=== PATIENT | male | born 1965 | race Caucasian/White ===

== ENCOUNTER 2016-11-02 13:25 | Inpatient (IN) | payer OTHER ==
[~2016-11-02] VITALS: Ht 182.9 cm; Wt 90.7 kg
--- NOTE | 2016-11-02 13:20 | NUR ---
brought by paramedics from [place], on mechanical vent with settings as follows AC 15, TV 500, FIO2 28 % and peep 0, sat at 99%, via tracheostomy, GT in place and clamped at this time, noted to have dsg on sacrum and both heels. Tele SR 80's, pt awake and maintains eye contact when talked to, right arm contracted.
--- NOTE | 2016-11-02 13:20 | NUR ---
PT WAS BROUGHT BY AMBULANCE WITH RT TO HOSPITAL AT THIS TIME. PT WAS TRANSFER FROM TRANSPORT VENT TO HOSPITAL VENT WITH OUT INCIDENT. PT SETTING ARE AC 15, VT 500, FIO2 28%. PT WAS A POSTED 8 SECURED AND INTACT WITH TIE. PT CUFF CHECKED WITH SUGAR BOILER. PT WAS SUCTION AND SCANT AMOUNT OF SECRETIONS OBTAIN. PT VENT ALARMS ON AND AUDIBLE AMBU BAG AND BACK UP TRACH AT BED SIDE. WILL CONTINUE TO MONITOR PT THROUGHOUT SHIFT.
--- NOTE | 2016-11-02 13:30 | NUR ---
DR Sena inserted a coudet # [id number] with yellow urine return, tolerated well
[2016-11-02 14:41] VITALS: BP 116/86
--- NOTE | 2016-11-02 16:38 | NUR ---
seen by Dr Anders
[2016-11-02 16:43] LABS: *BILIRUBIN,URIN NEGATIVE (NEGATIVE); *BLOOD, URINE 2+ (NEGATIVE); *COLOR,URINE YELLOW (YELLOW); *KETONES,URINE NEGATIVE (NEGATIVE); *PROTEIN,URINE TRACE (NEGATIVE); *UROBILINOGEN,URINE 0.2 E.U./dl (NORMAL); LEUKOCYTE ESTERASE ,URINE 2+ (NEGATIVE); NITRITE, URINE POSITIVE (NEGATIVE); PH,URINE 5.5 (5.0-8.0); UGLUCOSE NEGATIVE (NEGATIVE)
[2016-11-02 16:59] LABS: *CLARITY,URINE HAZY (CLEAR); BACTERIA,URINE MA /HPF (NONE SEEN); SQUAMOUS EPITHELIAL CELL,UR FEW /HPF (NONE SEEN); WBC,URINE 80-100 /HPF (0-3)
[2016-11-02] MEDS ORDERED: ASCORBIC ACID 500 MG GT (17:15)
[2016-11-02] MEDS ORDERED: SENN176S GT (17:15)
[2016-11-02] MEDS ORDERED: LACT10SO GT (17:15)
[2016-11-02] MEDS ORDERED: GABA-532 GT (17:15)
[2016-11-02] MEDS ORDERED: METO-295 GT (17:15)
[2016-11-02] MEDS ORDERED: ACET-2154 GT (17:15)
[2016-11-02] MEDS ORDERED: CLON0.1T GT (17:15)
[2016-11-02] MEDS ORDERED: BISA10SU8 RC (17:15)
[2016-11-02] MEDS ORDERED: LORA1TAB GT (17:15)
[2016-11-02] MEDS ORDERED: MVI,10VI2 GT (17:15)
[2016-11-02] MEDS ORDERED: FAMO40TA71 GT (17:15)
[2016-11-02] MEDS ORDERED: FERR325T28 GT (17:15)
[2016-11-02] MEDS ORDERED: NORT25CA GT (17:15)
[2016-11-02] MEDS ORDERED: CYCL10TA9 GT (17:15)
[2016-11-02] MEDS ORDERED: DOCU50LI15 GT (17:15)
[2016-11-02] MEDS ORDERED: HYDR4TAB4 GT (17:15)
[2016-11-02] MEDS ORDERED: IPRA12.9 IH (17:16)
[2016-11-02] MEDS ORDERED: ALBU2.5V13 IH (17:16)
[2016-11-02] MEDS ORDERED: LACT-96 GT (17:16)
[2016-11-02] MEDS ORDERED: ASCO1CAP3 GT (17:16)
[2016-11-02] MEDS ORDERED: [UNRECOGNIZED DRUG - OTHER] GT SCH (19:00)
[2016-11-02] MEDS ORDERED: Medication Not On Formulary EA (Hydromorphone HCl (Dilaudid) 4 MG) GT PRN (19:00)
[2016-11-02] MEDS ORDERED: FIBER GT SCH (19:00)
[2016-11-02] MEDS ORDERED: ACETAMINOPHEN 325 MG TABLET GT PRN (19:00)
[2016-11-02] MEDS ORDERED: CLONIDINE HCL 0.1 MG TABLET GT PRN (19:00)
[2016-11-02] MEDS ORDERED: NORTRIPTYLINE HCL 25 MG CAPSULE GT PRN (19:00)
[2016-11-02] MEDS ORDERED: LACTOSE REDUCED FOOD GT SCH (19:00)
[2016-11-02] MEDS ORDERED: BISACODYL 10 MG SUPP.RECT RC PRN (19:00)
[2016-11-02] MEDS ORDERED: LORAZEPAM 1 MG TABLET GT PRN (19:00)
[2016-11-02] MEDS ORDERED: FIBERSOURCE HN 1000ML LIQUID GT PRN (19:30)
[2016-11-02] MEDS: ALBUTEROL SULFATE 2.5 MG/ 0.5 ML NEBU IH SCH ×2 (19:44→23:39)
--- NOTE | 2016-11-02 19:44 | NUR ---
RECEIVED PT AWAKE AND ALERT ON THEODORE VENT WITH CURRENT SETTINGS OF AC 15, VT 500, FIO2 50%. PT APPEARS TO BE TOLERATING VENT SETTINGS AT THIS TIME. NO S/S OF RESPIRATORY DISTRESS OBSERVED. NO CHANGES MADE ON VENT AT THIS TIME. SUCTION NEEDED. ORAL CARE DONE. HME CHANGED. PORTEX #8 TRACH IS PATENT AND SECURED WITH TRACH TIES. AMBU BAG AND BACK UP TRACH ARE AT BEDSIDE. VENT PLUGGED INTO RED EMERGENCY OUTLET. WILL CONTINUE TO MONITOR THROUGHOUT SHIFT. 2109: NOTICED THAT PT HAS Q4 ALBUTEROL BREATHING TX ORDER. TX SCHEDULED FOR 1929 NOT ADMINISTERED. MEDICATION ORDER WAS NOT RECEIVED IN RESPIRATORY DEPARTMENT. NO ENDORSEMENT OF BREATHING TX WAS RECEIVED. WILL GIVE NEXT BREATHING TX ORDERED.
[2016-11-02 20:00] VITALS: BP 125/85
[2016-11-02] MEDS: LACTULOSE 20 G/30 ML LIQUID UDC GT SCH (21:42)
[2016-11-02] MEDS: ASCORBIC ACID 500 MG TABLET GT SCH (21:42)
[2016-11-02] MEDS: METOCLOPRAMIDE HCL 10 MG TABLET GT SCH (21:42)
[2016-11-02] MEDS: HYDROMORPHONE HCL 2 MG TABLET GT PRN (22:34)
[2016-11-03] VITALS: BP 114/78
--- NOTE | 2016-11-03 00:01 | NUR ---
Alert, mouths words approp. HOB up 30 degrees. Trach to vent; SaO2 monitored.
[2016-11-03] MEDS: ALBUTEROL SULFATE 2.5 MG/ 0.5 ML NEBU IH SCH ×6 (02:59→23:05)
[2016-11-03 04:00] VITALS: BP 115/82
[2016-11-03 06:41] LABS: BASOPHILS % (AUTO) 0.1 % (0.0-2.0); EOSINOPHILS # (AUTO) 0.1 K/uL (0.0-0.7); HEMATOCRIT 29.3 % (40-50); HEMOGLOBIN 9.5 G/DL (14.0-18.0); LYMPHOCYTES # (AUTO) 0.9 K/UL (0.8-4.8); LYMPHOCYTES % (AUTO) 8.2 % (20.5-51.5); MEAN CORPUSCULAR HEMOGLOBIN 28.1 UUG (27.0-31.0); MEAN CORPUSCULAR HGB CONC 32 g/dL (32.0-37.0); MEAN CORPUSCULAR VOLUME 86.6 FL (82.0-92.0); MONOCYTES # (AUTO) 0.5 K/UL (0.1-1.30); MONOCYTES % (AUTO) 4.6 % (0.0-11.0); NEUTROPHILS # (AUTO) 9.5 K/UL (1.8-8.9); NEUTROPHILS % (AUTO) 86.1 % (38.5-71.5); PLATELET COUNT (AUTO) 209 K/UL (150-450); RED BLOOD CELL COUNT(AUTO) 3.38 MIL/UL (4.7-6.1)
[2016-11-03 06:59] LABS: BILIRUBIN,TOTAL 0.3 mg/dL (0.2-1.0); CREATININE 0.7 mg/dL (0.6-1.3); PHOSPHOROUS 2.8 mg/dL (2.5-4.9); POTASSIUM 3.8 mmol/L (3.5-5.1); TOTAL PROTEIN, SERUM 7.3 g/dL (6.4-8.2)
[2016-11-03 07:28] VITALS: BP 137/93
--- NOTE | 2016-11-03 07:44 | NUR ---
PATIENT RECEIVED IN ROOM RESTING WITH EYES CLOSED IN NO ACUTE DISTRESS. SR ON ON SITE SERVICES SPECIALIST. TOLERATING VENT SETTINGS WNL. 02 SAT 98%. GT FEEDING OFF AT THIS TIME. DRESSING TO GT SITE C/D/I. ROLAND CATH DRAINING YELLOW CLEAR URINE. DVT PUMPS AND FIRST STEP MATTRESS IN PLACE.
[2016-11-03] MEDS: LACTULOSE 20 G/30 ML LIQUID UDC GT SCH ×2 (08:01→20:22)
[2016-11-03] MEDS: ACETAMINOPHEN 650 MG/20.3 ML LIQUID UDC GT PRN ×2 (08:02→20:22)
[2016-11-03] MEDS: FERROUS SULFATE 300 MG/5 ML LIQUID UDC GT SCH ×3 (08:03→16:41)
[2016-11-03] MEDS: FAMOTIDINE 20 MG TABLET GT SCH (08:04)
[2016-11-03] MEDS: GABAPENTIN 300 MG CAPSULE GT SCH ×3 (08:04→16:41)
[2016-11-03] MEDS: DOCUSATE SODIUM 100 MG/10 ML LIQUID UDC GT SCH ×2 (08:09→16:41)
[2016-11-03] MEDS: ASCORBIC ACID 500 MG TABLET GT SCH ×2 (08:09→20:23)
[2016-11-03] MEDS: METOCLOPRAMIDE HCL 10 MG TABLET GT SCH ×4 (08:09→20:22)
[2016-11-03] MEDS: MULTIVITS W-FE,OTHER MIN 15 ML UDC GT SCH (08:14)
[2016-11-03] MEDS ORDERED: SENNA LEAF EXTRACT GT SCH (09:00)
[2016-11-03] MEDS ORDERED: Medication Not On Formulary EA (Famotidine 40 MG) GT SCH (09:00)
[2016-11-03] MEDS ORDERED: MULTIVITAMINS 5 ML LIQUID UDC GT SCH (09:00)
[2016-11-03] MEDS ORDERED: MVI-12 10 ML IV SCH (09:00)
[2016-11-03] MEDS ORDERED: Medication Not On Formulary EA (Lactulose (Duphalac) 30 ML) GT SCH (09:00)
[2016-11-03] MEDS ORDERED: FERROUS SULFATE 325 MG TABEC PO SCH (09:00)
[2016-11-03] MEDS ORDERED: ASCORBIC ACID GT SCH (09:00)
[2016-11-03] MEDS ORDERED: GABAPENTIN 100 MG CAPSULE GT SCH (09:00)
[2016-11-03] MEDS: IPRATROPIUM BROMIDE 0.5 MG/2.5 ML NEBU NEB SCH ×4 (11:24→23:05)
[2016-11-03] MEDS ORDERED: IPRATROPIUM BROMIDE 0.5 MG/2.5 ML NEBU NEB SCH (11:30)
[2016-11-03 12:00] VITALS: BP 146/102
[2016-11-03] MEDS: NUTREN 1.5 1000ML BAG GT PRN (12:30)
[2016-11-03 15:59] VITALS: BP 136/94
[2016-11-03] MEDS: HYDROMORPHONE HCL 2 MG TABLET GT PRN (16:41)
[2016-11-03] MEDS ORDERED: CEFTRIAXONE 1 G VIAL IV SCH (20:00)
[2016-11-03 20:17] VITALS: BP 138/98
--- NOTE | 2016-11-03 20:20 | NUR ---
patient awake, alert, responsive,tolerated present vent setting well no respiratory distress,NSR on monitor,temp 100.1 started patient on Rocephin 1gm iv as ordered, Tylenol given via g tube , cooling measure provided.turned and reposition,on 1 st step air mattress ,patient has large amount of soft to loose stool,skin care ,mouth care given.
--- NOTE | 2016-11-03 20:34 | NUR ---
Pt rec'd on Nagel on settings of AC 15, VT 500 and FIO2-28%. Portex 8 is patent and secure. B/U Portex 8 and BVM at bedside. Nagel alarm parameters have been checked and remain audible at this time. Pt to be monitored throughout the shift, PRN SX and adm'd resp neb txs per MD orders.
[2016-11-03] MEDS ORDERED: CEFTRIAXONE 1 G VIAL ONE (20:53)
[2016-11-03] MEDS ORDERED: CEFTRIAXONE 1 G in IV DEXTROSE 5% 50 ML IV SCH (21:00)
[2016-11-04] MEDS: HYDROMORPHONE HCL 2 MG TABLET GT PRN ×3 (00:30→23:31)
[2016-11-04 00:39] VITALS: BP 119/81
--- NOTE | 2016-11-04 00:53 | NUR ---
patient c/o shoulder pain , Dilaudid 4 mg g tube given for pain.
[2016-11-04] MEDS: ALBUTEROL SULFATE 2.5 MG/ 0.5 ML NEBU IH SCH ×6 (03:25→22:58)
[2016-11-04] MEDS: IPRATROPIUM BROMIDE 0.5 MG/2.5 ML NEBU NEB SCH ×6 (03:25→22:58)
[2016-11-04 04:39] VITALS: BP 119/86
--- NOTE | 2016-11-04 05:56 | NUR ---
Patient remains on Viasys Nagel with no changes made to the continuous ventilator settings. No resp. distress noted throughout the shift. Pt was routinely sx'd, administered respiratory neb txs per MD orders and appeared to tolerate respiratory neb txs and continuous mechanical ventilator settings well. Portex 8 remains patent and secure. Backup Portex 8 and resusc. bag are at bedside. Viasys Nagel alarm parameters have been checked and remain audible at this time.
--- NOTE | 2016-11-04 07:12 | NUR ---
PATIENT RECEIVED IN ROOM RESTING ALERT AWAKE IN NO ACUTE DISTRESS. TOLERATING VENT SETTINGS. 02 SAT 97%. HOB ELEVATED. ROLAND CATH WITH URINE YELLOW AND CLEAR. DVT PUMPS AND FIRST STEP MATTRESS IN PLACE.
[2016-11-04 07:31] VITALS: BP 142/98
--- NOTE | 2016-11-04 07:40 | NUR ---
Pt received in semi hammond position, responsive to verbal stimuli, and on continuous mechanical ventilation via trach. Pt is on Nagel vent with ordered settings AC-15, VT-500, FIO2-28%. Pt tolerating vent settings well. SpO2-97%.Trach is a Portex 8. Trach is patent and secure. No redness or irritation around stoma or trach ties. Sxn'd for small amts of white secretions. In-line nebulizer Txs given Q4 as ordered with Albuterol/Atrovent. Txs tolerated well, with no adverse reactions noted. Vent alarm parameters checked, on and audible. Vent plugged into red emergency outlet. Bag/Valve/Mask and back up trach at bedside. No signs or symptoms of respiratory distress noted. Will continue to monitor.
[2016-11-04] MEDS: NUTREN 1.5 1000ML BAG GT PRN ×2 (08:00→23:31)
[2016-11-04] MEDS: GABAPENTIN 300 MG CAPSULE GT SCH ×3 (08:23→16:29)
[2016-11-04] MEDS: FAMOTIDINE 20 MG TABLET GT SCH (08:23)
[2016-11-04] MEDS: ASCORBIC ACID 500 MG TABLET GT SCH ×2 (08:24→20:27)
[2016-11-04] MEDS: LACTULOSE 20 G/30 ML LIQUID UDC GT SCH ×2 (08:24→20:27)
[2016-11-04] MEDS: MULTIVITS W-FE,OTHER MIN 15 ML UDC GT SCH (08:24)
[2016-11-04] MEDS: FERROUS SULFATE 300 MG/5 ML LIQUID UDC GT SCH ×3 (08:24→16:29)
[2016-11-04] MEDS: DOCUSATE SODIUM 100 MG/10 ML LIQUID UDC GT SCH ×2 (08:24→16:33)
[2016-11-04] MEDS: METOCLOPRAMIDE HCL 10 MG TABLET GT SCH ×4 (08:26→20:27)
[2016-11-04 11:48] VITALS: BP 123/87
[2016-11-04] MEDS ORDERED: MEROPENEM 0.5 G in IV NORMAL SALINE 50 ML IV SCH (15:15)
--- NOTE | 2016-11-04 15:21 | NUR ---
PATIENT SEEN BY DR VALENTE. DETAILED REPORT GIVEN.
[2016-11-04 16:01] VITALS: BP 123/81
[2016-11-04] MEDS: ACETAMINOPHEN 650 MG/20.3 ML LIQUID UDC GT PRN ×2 (16:28→23:30)
[2016-11-04] MEDS: MEROPENEM 1 G in IV NORMAL SALINE 100 ML IV SCH ×2 (16:29→23:30)
--- NOTE | 2016-11-04 16:30 | NUR ---
PATIENT WITH TEMP 100.7. COOLING MEASURES INITIATED. TYLENOL GIVEN PRESCRIBED. MERREM GIVEN.
--- NOTE | 2016-11-04 18:04 | NUR ---
END OF SHIFT NOTE: PATIENT IN NO ACUTE DISTRESS THROUGHOUT SHIFT. DENIED PAIN. SR ON BRINE TANK OPERATOR. TOLERATING GT FEEDINGS WELL. NO RESIDUAL NOTED. HOB ELEVATED. HAD ONE LG BM. ROLAND CATH IN PLACE WITH URINE YELLOW IN COLOR. WOUND TX DONE ORDERED. TURNED AND REPOSITIONED EVERY 3 HOURS AND PRN. HEELS FLOATED ON PILLOWS. DVT PUMPS AND FIRST STEP MATTRESS IN PLACE. SAFETY MAINTAINED.
--- NOTE | 2016-11-04 18:58 | NUR ---
TEMP 100.9. DR. ARCHER NOTIFIED. NO NEW ORDERS AT THIS TIME. CONTINUES WITH COOLING MEASURES. WILL ENDORSE TO NEXT SHIFT RN.
--- NOTE | 2016-11-04 19:05 | NUR ---
RECEIVED PT ON CONTINUOUS VENT AC 15 VT 500 FIO2 28% . TRACH IN PLACE AND SECURED. BACK UP TRACH AND AMBU BAG AT BEDSIDE. IN LINE TX GIVEN ORDERED. SUCTION SMALL AMOUNT THIN PALE YELLOW SECRETIONS. VENT CHECKED, ALARMS WORKING WELL AND AUDIBLE. NO DISTRESS NOTED AT THIS TIME. WILL CONTINUE TO MONITOR.
--- NOTE | 2016-11-04 20:00 | NUR ---
PATIENT AWAKE,O2 SAT 99%,NSR ON MONITOR, TOLERATED TUBE FEEDING WELL,NO RESIDUAL,HELD LACTULOSE DUE TO CONTINUE HAVING LARGE AMOUNT OF DIARRHEA,TEMP 100.2 CONTINUE WITH COOLING MEASURE.MOUTH CARE, SKIN CARE ,TURN AND REPOSITION Q 2H, HOB ELEVATED.
[2016-11-04 20:19] VITALS: BP 119/81
--- NOTE | 2016-11-05 00:05 | NUR ---
PATIENT SLEEP INTERMITTENTLY, NO ACUTE DISTRESS,TEMP 98.3 DRESSING CHANGE TO SACRAL WOUND, WOUND CLEAN, SMALL SEROUS DRAINAGE NOTED, ESBL URINE CONTACT ISOLATION PRECAUTIONS.
[2016-11-05 00:11] VITALS: BP 92/61
[2016-11-05] MEDS: IPRATROPIUM BROMIDE 0.5 MG/2.5 ML NEBU NEB SCH ×6 (02:28→23:14)
[2016-11-05] MEDS: ALBUTEROL SULFATE 2.5 MG/ 0.5 ML NEBU IH SCH ×6 (02:28→23:14)
[2016-11-05 04:48] VITALS: BP 115/78
--- NOTE | 2016-11-05 06:46 | NUR ---
PATIENT REMAINS AFEBRILE, TOLERATED SAME VENT SETTING,TURN AND REPOSITION,STOP TUBE FEEDING AT 0600, TO RESTART AT 0800.
[2016-11-05 06:47] LABS: BASOPHILS % (AUTO) 0.2 % (0.0-2.0); EOSINOPHILS # (AUTO) 0.1 K/uL (0.0-0.7); EOSINOPHILS % (AUTO) 1.8 % (0.0-7.0); HEMATOCRIT 28.7 % (40-50); HEMOGLOBIN 9.6 G/DL (14.0-18.0); LYMPHOCYTES % (AUTO) 24.3 % (20.5-51.5); MEAN CORPUSCULAR HEMOGLOBIN 28.8 UUG (27.0-31.0); MEAN CORPUSCULAR HGB CONC 33 g/dL (32.0-37.0); MEAN CORPUSCULAR VOLUME 86.7 FL (82.0-92.0); MONOCYTES # (AUTO) 1.1 K/UL (0.1-1.30); MONOCYTES % (AUTO) 12.8 % (0.0-11.0); NEUTROPHILS # (AUTO) 5.1 K/UL (1.8-8.9); NEUTROPHILS % (AUTO) 60.9 % (38.5-71.5); PLATELET COUNT (AUTO) 191 K/UL (150-450); RED BLOOD CELL COUNT(AUTO) 3.31 MIL/UL (4.7-6.1); WHITE BLOOD COUNT (AUTO) 8.3 K/UL (4.0-11.2)
--- NOTE | 2016-11-05 07:19 | NUR ---
PT RECEIVED AWAKE ALERT RESPONSIVE ON CMV WITH TRACH SECURED AND INTACT. AIRWAY PATENT. PT TOLERATING CURRENT VENT SETTINGS FINE WITH NO DISTRESS. VENT ALARMS SET AND AUDIBLE.
[2016-11-05 07:20] LABS: BILIRUBIN,TOTAL 0.2 mg/dL (0.2-1.0); CREATININE 0.7 mg/dL (0.6-1.3); MAGNESIUM 2.1 mg/dL (1.8-2.4); PHOSPHOROUS 3.5 mg/dL (2.5-4.9); POTASSIUM 4.1 mmol/L (3.5-5.1); THYROID STIMULATING HORMONE 1.708 mIU/mL (0.358-3.740); TOTAL PROTEIN, SERUM 7.2 g/dL (6.4-8.2)
[2016-11-05 07:27] VITALS: BP 146/98
--- NOTE | 2016-11-05 07:30 | NUR ---
AWAKE ALERT AND RESPONSIVE, NO SIGNS OF DISTRESS OR C/O PAIN. VENT SETTINGS ORDERED SATURATING 100%
[2016-11-05] MEDS: FAMOTIDINE 20 MG TABLET GT SCH (08:28)
[2016-11-05] MEDS: GABAPENTIN 300 MG CAPSULE GT SCH ×3 (08:28→16:02)
[2016-11-05] MEDS: FERROUS SULFATE 300 MG/5 ML LIQUID UDC GT SCH ×3 (08:28→16:02)
[2016-11-05] MEDS: METOCLOPRAMIDE HCL 10 MG TABLET GT SCH ×4 (08:28→20:24)
[2016-11-05] MEDS: LACTULOSE 20 G/30 ML LIQUID UDC GT SCH ×2 (08:28→20:24)
[2016-11-05] MEDS: DOCUSATE SODIUM 100 MG/10 ML LIQUID UDC GT SCH ×2 (08:28→16:02)
[2016-11-05] MEDS: MULTIVITS W-FE,OTHER MIN 15 ML UDC GT SCH (08:28)
[2016-11-05] MEDS: MEROPENEM 1 G in IV NORMAL SALINE 100 ML IV SCH ×2 (08:28→16:09)
[2016-11-05] MEDS: ASCORBIC ACID 500 MG TABLET GT SCH ×2 (08:28→20:24)
[2016-11-05] MEDS: CYCLOBENZAPRINE HCL 10 MG TABLET GT PRN (08:30)
--- NOTE | 2016-11-05 08:30 | NUR ---
GT TUBING BURSTED DURING FLUSHING DR SILVER NOTIFIED SAID TO CALL DR MCMANUS
--- NOTE | 2016-11-05 09:00 | NUR ---
DR MCMANUS NOTIFIED WITH ORDER TO OBTAIN CONSENT FOR GT REPLACEMENT IN AM.
--- NOTE | 2016-11-05 09:30 | NUR ---
TRIED TO REACH DPOA SHOWN ON RECORD BUT TO NO AVAIL.
[2016-11-05 09:44] LABS: ABG BASE EXCESS 3.4 mmol/L; ABG HCO3 27.5 mmol/L; ABG PCO2 39.4 mmHg (35.0-45.0); ABG PH 7.461 (7.350-7.450); ABG SITE RIGHT RADIAL; ABG TOTAL HEMOGLOBIN 9.9 G/dL (13.5-18.0); MetHb 0.3 % (0.0-1.5); O2Hb 97.1 % (94.0-97.0); VENT MODE VENT - A/C; VT, ABG 500 mL
--- NOTE | 2016-11-05 10:45 | NUR ---
SEEN BY DR VALENTE NO NEW ORDERS, RESPIRATORY STATUS NO CHANGE
[2016-11-05 11:02] VITALS: BP 147/65
[2016-11-05] MEDS: IV D5 1/2 NS 1000 ML 1,000 ML IV PRN (12:56)
--- NOTE | 2016-11-05 12:57 | NUR ---
ALL GT MEDS NOT GIVEN AWAITING GT REPLACEMENT
--- NOTE | 2016-11-05 14:53 | NUR ---
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 PT ON FIRST STEP [facility]. SURGICAL CONSULT WAS CALLED BY DR KOTHARI TO DR ULKE DYER. ALL SKIN PROTECTION AND WOUND RECOMMENDATIONS DISCUSSED WITH NURSING STAFF. IN AGREEMENT WITH PLAN OF CARE. Addendum: 11/05/16 at 1454 by DEB CARMICHAEL RN Amended: Links added. Addendum: 11/05/16 at 1458 by DEB CARMICHAEL RN SCARRING NOTED TO LEFT ANKLE AND HEEL. DISCOLORED AREAS NOTED TO LATERAL FEET.
[2016-11-05] MEDS ORDERED: Z GUARD REMEDY PASTE 57 GM TUBE TOP PRN (15:00)
[2016-11-05 15:07] VITALS: BP 142/88
[2016-11-05] MEDS: NYSTATIN SUSPENSION 5 ML LIQUID UDC PO SCH (18:16)
--- NOTE | 2016-11-05 18:50 | NUR ---
DR MCMANUS IN REPLACED GT AT BEDSIDE PATIENT TOLERATED WELL. SAID OK TO START FEEDING ORDERED VIA GT
--- NOTE | 2016-11-05 19:10 | NUR ---
Bedside reporting with MEHREEN Cash. Received patient awake, non verbal due to trach inplaced, alert and able to make needs known thru facial and body language. On mechanical vent tolerating prescribed setting well. GT intact, patent, tolerating feeding. No s/s of aspiration noted. No gastric residual obtained. F/C intact and patent draining clear yellow output per gravity. On 1st step mattress for skin management. Continue care as planned.
[2016-11-05] MEDS: NUTREN 1.5 1000ML BAG GT PRN (19:18)
--- NOTE | 2016-11-05 19:24 | NUR ---
Received pt on Nagel vent with the following settings of AC-15, Vt-500, FIO2-28%, trached with Portex#8 cuffed trach, which is in the place and secure. Pt tachypneic and asking for pain medication. RN Christofer notified. Airway care done, pt responded to physical stimuli. In-line HHN tx with 2.5mg Albuterol+0.5mg Atrovent given, pt tolerated well. Cont. pulse ox on. Resus. bag and back up trach at bedside. Vent and alarms checked and reset.
[2016-11-05 20:11] VITALS: BP 152/106
[2016-11-05] MEDS: ACETAMINOPHEN 650 MG/20.3 ML LIQUID UDC GT PRN (20:18)
[2016-11-05] MEDS: HYDROMORPHONE HCL 2 MG TABLET GT PRN (20:19)
--- NOTE | 2016-11-05 20:20 | NUR ---
Tylenol and Dilaudid was given via GT for Temp 101.1 and complaint of generalized pain. Will monitor.
[2016-11-05] MEDS: Z GUARD REMEDY PASTE 57 GM TUBE TOP SCH (20:24)
--- NOTE | 2016-11-06 | NUR ---
Temp down to 99. Continue cooling measure. Will monitor.
[2016-11-06 00:18] VITALS: BP 111/79
[2016-11-06] MEDS: MEROPENEM 1 G in IV NORMAL SALINE 100 ML IV SCH ×4 (00:35→23:26)
[2016-11-06] MEDS: NYSTATIN SUSPENSION 5 ML LIQUID UDC PO SCH ×4 (00:35→17:46)
[2016-11-06] MEDS: ALBUTEROL SULFATE 2.5 MG/ 0.5 ML NEBU IH SCH ×6 (02:58→23:41)
[2016-11-06] MEDS: IPRATROPIUM BROMIDE 0.5 MG/2.5 ML NEBU NEB SCH ×6 (02:59→23:41)
[2016-11-06 04:00] VITALS: BP 119/88
[2016-11-06] MEDS: IV D5 1/2 NS 1000 ML 1,000 ML IV PRN ×2 (04:00→22:09)
--- NOTE | 2016-11-06 05:16 | NUR ---
Cont. monitor pt on prescribed vent settings. During the shift pt still tachypneic, RN provided pain medication. Prescribed vent settings pt tolerated well, no changes made. Sx and lavage PRN. In-line HHN tx's given as ordered. Cont. pulse ox on. Resus. bag and back up trach at bedside. Vent and alarms on and audible.
--- NOTE | 2016-11-06 06:48 | NUR ---
Afebrile.Tolerating vent, GT feeding well. All needs attended and met. No significant event reported all night. Continue care as planned.
--- NOTE | 2016-11-06 07:30 | NUR ---
NO SIGNS OF PAIN OR DISTRESS WITH CURRENT VENT SETTINGS SATURATING 100%, DENIES PAIN. TOLERATING TF AT 75ML/HR. AFEBRILE WILL CONTINUE WITH JESSI STATUS AND CURRENT TX PLAN
[2016-11-06 08:07] LABS: BASOPHILS % (AUTO) 0.1 % (0.0-2.0); EOSINOPHILS # (AUTO) 0.1 K/uL (0.0-0.7); EOSINOPHILS % (AUTO) 1.1 % (0.0-7.0); HEMOGLOBIN 9.9 G/DL (14.0-18.0); LYMPHOCYTES # (AUTO) 1.5 K/UL (0.8-4.8); LYMPHOCYTES % (AUTO) 19.4 % (20.5-51.5); MEAN CORPUSCULAR HEMOGLOBIN 28.3 UUG (27.0-31.0); MEAN CORPUSCULAR HGB CONC 33 g/dL (32.0-37.0); MEAN CORPUSCULAR VOLUME 85.5 FL (82.0-92.0); MONOCYTES # (AUTO) 0.7 K/UL (0.1-1.30); MONOCYTES % (AUTO) 9.5 % (0.0-11.0); NEUTROPHILS # (AUTO) 5.3 K/UL (1.8-8.9); NEUTROPHILS % (AUTO) 69.9 % (38.5-71.5); PLATELET COUNT (AUTO) 198 K/UL (150-450); RED BLOOD CELL COUNT(AUTO) 3.51 MIL/UL (4.7-6.1); WHITE BLOOD COUNT (AUTO) 7.6 K/UL (4.0-11.2)
[2016-11-06 08:18] LABS: BILIRUBIN,TOTAL 0.3 mg/dL (0.2-1.0); CREATININE 0.7 mg/dL (0.6-1.3); PHOSPHOROUS 3.3 mg/dL (2.5-4.9); POTASSIUM 3.6 mmol/L (3.5-5.1); TOTAL PROTEIN, SERUM 7.1 g/dL (6.4-8.2)
[2016-11-06] MEDS: ASCORBIC ACID 500 MG TABLET GT SCH ×2 (08:48→20:18)
[2016-11-06] MEDS: METOCLOPRAMIDE HCL 10 MG TABLET GT SCH ×4 (08:48→20:18)
[2016-11-06] MEDS: FAMOTIDINE 20 MG TABLET GT SCH (08:48)
[2016-11-06] MEDS: FERROUS SULFATE 300 MG/5 ML LIQUID UDC GT SCH ×3 (08:48→17:46)
[2016-11-06] MEDS: GABAPENTIN 300 MG CAPSULE GT SCH ×3 (08:48→17:46)
[2016-11-06] MEDS: LACTULOSE 20 G/30 ML LIQUID UDC GT SCH ×2 (08:49→20:18)
[2016-11-06] MEDS: DOCUSATE SODIUM 100 MG/10 ML LIQUID UDC GT SCH ×2 (08:49→17:00)
[2016-11-06] MEDS: MULTIVITS W-FE,OTHER MIN 15 ML UDC GT SCH (08:49)
[2016-11-06] MEDS: Z GUARD REMEDY PASTE 57 GM TUBE TOP SCH ×2 (08:49→20:23)
[2016-11-06 09:50] VITALS: BP 119/85
--- NOTE | 2016-11-06 10:56 | NUR ---
SEEN BY DR VALENTE WITH ORDERS, SEE NOTES
[2016-11-06 11:12] VITALS: BP 105/72
[2016-11-06] MEDS: NUTREN 1.5 1000ML BAG GT PRN (12:06)
[2016-11-06 15:14] VITALS: BP 139/85
--- NOTE | 2016-11-06 17:00 | NUR ---
SEEN BY DR DYER FOR WOUND CARE, SEE NOTES. WOUND CULTURE RIGHT HEEL SENT TO LAB
--- NOTE | 2016-11-06 18:00 | NUR ---
REPORT GIVEN TO PHYSICIAN NEONATOLOGY CONTINUE WITH JESSI STATUS. AFEBRILE
--- NOTE | 2016-11-06 18:11 | NUR ---
RESUMED CARE POST REPORT, VENT IS A STABLE VENT DEPENDENT ON CURRENT VENTILATOR SETTINGS. O2 SATURATION IS AT 99-100% ALL DAY. IN LINE MEDICATION GIVEN WITHOUT COMPLICATION. SUCTIONED NEEDED WITHOUT COMPLICATION. MOVED TO CCU FOR TONIGHT. NO CHANGES.
--- NOTE | 2016-11-06 18:55 | NUR ---
Report received from janee Bach patient in the unit at 1745. and rn with patient until 184.
--- NOTE | 2016-11-06 19:10 | NUR ---
Received report from MEHREEN Romero. VS stable, HR 90's SR.
--- NOTE | 2016-11-06 19:12 | NUR ---
Patient under my visual care for 15 minutes and report given to incoming janee hanson as it was received from janee Bach
--- NOTE | 2016-11-06 19:43 | NUR ---
PT RECEIVED ON THEODORE VENT WITH CURRENT SETTINGS OF AC 15, VT 500, FIO2 40%. NO CHANGES MADE AT THE MOMENT. PT IS AWAKE AND ALERT AT THIS TIME. APPEARS TO BE TOLERATING VENT SETTINGS WITH NO ISSUES. PT SHOWING NO S/S OF RESPIRATORY DISTRESS AT THIS TIME. TRACH IS PATENT AND SECURED WITH TRACH TIES. VENT CHECK DONE. ALARMS ARE ON AND AUDIBLE. ADMINISTERED Q4 BREATHING TX ORDERED. NO ADVERSE REACTIONS OBSERVED. ORAL CARE DONE. HME CHANGED. SUCTIONED MODERATE AMOUNT OF THICK, PALE SECRETIONS. BVM AND BACK UP TRACH ARE AT BEDSIDE. VENT IS PLUGGED INTO RED EMERGENCY OUTLET. WILL CONTINUE TO MONITOR THROUGHOUT SHIFT.
[2016-11-06 20:00] VITALS: BP 134/100
--- NOTE | 2016-11-06 20:10 | NUR ---
Seen patient awake, assessment done.Turned and repositioned him with maximum assistance w/ 2 RN's. RT G-tube feeding running at 75mls/hr w/ zero residuals. With 1BM loose and brown in color. VS stable. Afebrile.
[2016-11-06] MEDS: HYDROMORPHONE HCL 2 MG TABLET GT PRN (20:21)
[2016-11-06 23:53] LABS: *BILIRUBIN,URIN NEGATIVE (NEGATIVE); *BLOOD, URINE NEGATIVE (NEGATIVE); *CLARITY,URINE CLEAR (CLEAR); *COLOR,URINE YELLOW (YELLOW); *KETONES,URINE NEGATIVE (NEGATIVE); *PROTEIN,URINE NEGATIVE (NEGATIVE); *UROBILINOGEN,URINE 0.2 E.U./dl (NORMAL); LEUKOCYTE ESTERASE ,URINE NEGATIVE (NEGATIVE); NITRITE, URINE NEGATIVE (NEGATIVE); PH,URINE 5.5 (5.0-8.0); UGLUCOSE NEGATIVE (NEGATIVE)
[2016-11-06 23:58] LABS: BACTERIA,URINE FEW /HPF (NONE SEEN); RBC,URINE 0-3 /HPF (0-3); SQUAMOUS EPITHELIAL CELL,UR FEW /HPF (NONE SEEN); WBC,URINE 0-3 /HPF (0-3)
[2016-11-07] VITALS: BP 113/83
--- NOTE | 2016-11-07 | NUR ---
Continue skin care. Bed bath rendered. Pictures taken. Pt is asleep but easily awakened. VS stable. denies any pain.
[2016-11-07] MEDS: IPRATROPIUM BROMIDE 0.5 MG/2.5 ML NEBU NEB SCH ×6 (02:30→23:11)
[2016-11-07] MEDS: ALBUTEROL SULFATE 2.5 MG/ 0.5 ML NEBU IH SCH ×6 (02:30→23:11)
[2016-11-07 04:00] VITALS: BP 112/77
--- NOTE | 2016-11-07 04:00 | NUR ---
PT had another loose BM to pasty brown color stool, inserted flexi seal, to also protect sacral wound. Continue skin care protocol: turned and repositioned.
[2016-11-07] MEDS: NYSTATIN SUSPENSION 5 ML LIQUID UDC PO SCH ×5 (06:08→23:43)
[2016-11-07] MEDS: HYDROMORPHONE HCL 2 MG TABLET GT PRN ×3 (06:08→20:32)
[2016-11-07 06:21] LABS: BASOPHILS % (AUTO) 0.2 % (0.0-2.0); EOSINOPHILS # (AUTO) 0.3 K/uL (0.0-0.7); EOSINOPHILS % (AUTO) 2.8 % (0.0-7.0); HEMATOCRIT 32.2 % (40-50); HEMOGLOBIN 10.5 G/DL (14.0-18.0); LYMPHOCYTES # (AUTO) 2.1 K/UL (0.8-4.8); LYMPHOCYTES % (AUTO) 18.9 % (20.5-51.5); MEAN CORPUSCULAR HEMOGLOBIN 27.8 UUG (27.0-31.0); MEAN CORPUSCULAR HGB CONC 33 g/dL (32.0-37.0); MEAN CORPUSCULAR VOLUME 85.2 FL (82.0-92.0); MONOCYTES # (AUTO) 0.7 K/UL (0.1-1.30); MONOCYTES % (AUTO) 6.4 % (0.0-11.0); NEUTROPHILS % (AUTO) 71.7 % (38.5-71.5); PLATELET COUNT (AUTO) 240 K/UL (150-450); RED BLOOD CELL COUNT(AUTO) 3.78 MIL/UL (4.7-6.1); WHITE BLOOD COUNT (AUTO) 11.1 K/UL (4.0-11.2)
[2016-11-07 06:26] LABS: CARBON DIOXIDE 26 mmol/L (21-32); CHLORIDE 106 mmol/L (98-107); CREATININE 0.6 mg/dL (0.6-1.3); GLUCOSE 120 mg/dL (74-106); PHOSPHOROUS 3.2 mg/dL (2.5-4.9); POTASSIUM 3.4 mmol/L (3.5-5.1); UREA NITROGEN, BLOOD 10 mg/dL (7-18)
--- NOTE | 2016-11-07 07:00 | NUR ---
Called and spoke to LEATHA Patton regarding low HH 7.6/22.7 and WBC of 20.6. Ordered 1 unit of PRBC and type and screen. Addendum: 11/07/16 at 0714 by GIOVANY GIL RN Wrong patient
--- NOTE | 2016-11-07 07:30 | NUR ---
RECIEVED REPORT FROM THE INVESTIGATION DIVISION LIEUTENANT RN. PT IS LYING IN BED, ALERT AND ORIENTED TO HIS NAME. PT IS QUADREPLEGIC, VSS. NO APPARENT DISTRESS NOTED. HR IS SR. TRACHEOSTOTOMY TUBE INTACT PORTEX 8, CONNECTED TO A VENT WITH A SETTING OF AC-15, TV-500, FIO2-28%. O2SAT 98%. NO APPARENT RESPIRATORY DISTRESS.
--- NOTE | 2016-11-07 07:30 | NUR ---
Report to MEHREEN olson. Given Dilaudid given for neck and shoulder pain, HR was 90's, facial grimace noted, especial during turning.
[2016-11-07 08:00] VITALS: BP 124/90
--- NOTE | 2016-11-07 08:02 | NUR ---
PT REC'D ON THEODORE VENT SETTINGS AC15 500VT PEEP+0, 28%FIO2. NO VENT CHANGES MADE AT THIS TIME NO WEANING ORDERED. PT TOLERATING CURRENT VENT MODALITY WELL. NO S/S OF DISTRESS NOTED OF THIS TIME. VENT ALARMS AUDIBLE CHECKED AND RESET. Q4 INHALATION THERAPY TO BE GIVEN ORDERED BY MD. SUCTIONED SM AMOUNT OF THICK, YELLOWISH SECRETIONS. HME CHANGED. AMBU BAG AND BACK UP TRACH AT BEDSIDE. WILL CONTINUE TO MONITOR AND REPORT ANY CHANGES.
--- NOTE | 2016-11-07 08:30 | NUR ---
TRANSFERRED THE PT TO JESSI VIA BED TO RM 210. AFEBRILE AND CONDITION IS UNCHANGED.
[2016-11-07] MEDS: LACTULOSE 20 G/30 ML LIQUID UDC GT SCH ×2 (08:44→20:31)
[2016-11-07] MEDS: METOCLOPRAMIDE HCL 10 MG TABLET GT SCH ×4 (08:44→20:31)
[2016-11-07] MEDS: MULTIVITS W-FE,OTHER MIN 15 ML UDC GT SCH (08:44)
[2016-11-07] MEDS: FAMOTIDINE 20 MG TABLET GT SCH (08:44)
[2016-11-07] MEDS: FERROUS SULFATE 300 MG/5 ML LIQUID UDC GT SCH ×3 (08:44→17:06)
[2016-11-07] MEDS: DOCUSATE SODIUM 100 MG/10 ML LIQUID UDC GT SCH ×3 (08:44→17:00)
[2016-11-07] MEDS: ASCORBIC ACID 500 MG TABLET GT SCH ×2 (08:45→20:31)
[2016-11-07] MEDS: Z GUARD REMEDY PASTE 57 GM TUBE TOP SCH ×2 (08:45→20:31)
[2016-11-07] MEDS ORDERED: POTASSIUM CHLORIDE 20 MEQ POWDER PACKET GT ONE (08:45)
[2016-11-07] MEDS: GABAPENTIN 300 MG CAPSULE GT SCH ×3 (08:46→17:04)
[2016-11-07] MEDS: MEROPENEM 1 G in IV NORMAL SALINE 100 ML IV SCH ×3 (08:57→23:43)
--- NOTE | 2016-11-07 09:00 | NUR ---
NO ACUTE DISTRESS, CONTINUE CURRENT TX PLAN A JESSI STATUS
--- NOTE | 2016-11-07 09:45 | NUR ---
REPORT GIVEN TO HEIDE VERDE.
[2016-11-07] MEDS: CYCLOBENZAPRINE HCL 10 MG TABLET GT PRN (10:24)
[2016-11-07] MEDS: NUTREN 1.5 1000ML BAG GT PRN (10:44)
[2016-11-07] MEDS: IV D5 1/2 NS 1000 ML 1,000 ML IV PRN (10:58)
--- NOTE | 2016-11-07 11:00 | NUR ---
SEEN BY DR VALENTE AND DR SONI SEE NOTES
[2016-11-07 11:53] VITALS: BP 144/112
[2016-11-07] MEDS ORDERED: SIMETHICONE 40 MG/0.6 ML 30 ML BOTTLE PO PRN (12:15)
--- NOTE | 2016-11-07 16:00 | NUR ---
WOUND CARE DONE NOTED WOUND WITH SEROUS DRAINAGE, CLEAN AND GRANULATING BOTH SACRUM AND RIGHT HEEL.
[2016-11-07 16:11] VITALS: BP 131/93
--- NOTE | 2016-11-07 18:21 | NUR ---
CONTINUE WITH JESSI MONITORING AND PAIN MANAGEMENT, IV ANTIBIOTICS NO ALLERGY REACTION. REMAINS SR ON MONITOR
--- NOTE | 2016-11-07 19:00 | NUR ---
Bedside reporting with Shreya. Patient sleeping during initial rounds. Not in distress. Tolerating vent setting as prescribed. HOB elevated. GT feeding continuos via Enteral pump. No gastric residual obtained at this time. No s/s of aspiration noted. Flexi-seal intact with small amount of santillan colored output, irrigated with 60 cc of water as needed. Sacral dressing of Mepelex with some pinkish colored stain, changed as needed. Turned and repositioned for comfort. Continue care as planned.
[2016-11-07 20:00] VITALS: BP 131/81
--- NOTE | 2016-11-07 20:35 | NUR ---
Presenting grimacing, through mouthing words complaining of sacral wound pain, medicated with Dilaudis 4 mg as ordered and needed. Will monitor.
--- NOTE | 2016-11-07 21:30 | NUR ---
Sleeping at this time. No s/s of pain/discomforts.
[2016-11-08] VITALS: BP 132/86
[2016-11-08] MEDS: IV D5 1/2 NS 1000 ML 1,000 ML IV PRN ×2 (02:46→18:03)
[2016-11-08] MEDS: NUTREN 1.5 1000ML BAG GT PRN ×2 (02:46→18:04)
[2016-11-08] MEDS: ALBUTEROL SULFATE 2.5 MG/ 0.5 ML NEBU IH SCH ×6 (02:52→23:30)
[2016-11-08] MEDS: IPRATROPIUM BROMIDE 0.5 MG/2.5 ML NEBU NEB SCH ×6 (02:52→23:30)
[2016-11-08 04:00] VITALS: BP 137/90
[2016-11-08] MEDS: NYSTATIN SUSPENSION 5 ML LIQUID UDC PO SCH ×3 (06:09→17:35)
--- NOTE | 2016-11-08 06:36 | NUR ---
Slept well. Remain afebrile. No further complaint presented . had [address] 140's non sustained. All needs attended and met. Tolerating vent setting, GT feeding well. No significant event reported. Continue care as planned.
[2016-11-08 06:42] LABS: BASOPHILS % (AUTO) 0.3 % (0.0-2.0); EOSINOPHILS # (AUTO) 0.4 K/uL (0.0-0.7); EOSINOPHILS % (AUTO) 3.4 % (0.0-7.0); HEMATOCRIT 31.5 % (40-50); HEMOGLOBIN 10.4 G/DL (14.0-18.0); LYMPHOCYTES # (AUTO) 2.2 K/UL (0.8-4.8); LYMPHOCYTES % (AUTO) 19.8 % (20.5-51.5); MEAN CORPUSCULAR HEMOGLOBIN 28.8 UUG (27.0-31.0); MEAN CORPUSCULAR HGB CONC 33 g/dL (32.0-37.0); MEAN CORPUSCULAR VOLUME 87.3 FL (82.0-92.0); MONOCYTES # (AUTO) 0.7 K/UL (0.1-1.30); NEUTROPHILS # (AUTO) 7.9 K/UL (1.8-8.9); NEUTROPHILS % (AUTO) 70.5 % (38.5-71.5); PLATELET COUNT (AUTO) 285 K/UL (150-450); RED BLOOD CELL COUNT(AUTO) 3.61 MIL/UL (4.7-6.1); WHITE BLOOD COUNT (AUTO) 11.2 K/UL (4.0-11.2)
[2016-11-08 06:52] LABS: CREATININE 0.7 mg/dL (0.6-1.3); MAGNESIUM 2.2 mg/dL (1.8-2.4); PHOSPHOROUS 2.4 mg/dL (2.5-4.9); POTASSIUM 4.6 mmol/L (3.5-5.1)
--- NOTE | 2016-11-08 07:22 | NUR ---
Bedside report given to MEHREEN Mak
--- NOTE | 2016-11-08 07:30 | NUR ---
awake, able to follow commands, on vent via tracheostomy with same settings, sat at 100%, repositioned for comfort with head of bed elevated, on isolation for esbl in urine, GT in tact and patent, clamped a this time, flexiseal with liquid green stool in the bag, martinez catheter draining clear yellow urine, on first step mattress
[2016-11-08 07:47] VITALS: BP 150/111
--- NOTE | 2016-11-08 08:00 | NUR ---
tube fdg of Nutren 1.5 started at 75 ml/hr- no residual noted, aspiration precaution observed.
[2016-11-08] MEDS: FERROUS SULFATE 300 MG/5 ML LIQUID UDC GT SCH ×3 (08:39→16:46)
[2016-11-08] MEDS: MULTIVITS W-FE,OTHER MIN 15 ML UDC GT SCH (08:39)
[2016-11-08] MEDS: METOCLOPRAMIDE HCL 10 MG TABLET GT SCH ×4 (08:39→21:45)
[2016-11-08] MEDS: LACTULOSE 20 G/30 ML LIQUID UDC GT SCH ×2 (08:39→21:45)
[2016-11-08] MEDS: GABAPENTIN 300 MG CAPSULE GT SCH ×3 (08:39→16:45)
[2016-11-08] MEDS: MEROPENEM 1 G in IV NORMAL SALINE 100 ML IV SCH ×2 (08:39→16:07)
[2016-11-08] MEDS: ASCORBIC ACID 500 MG TABLET GT SCH ×2 (08:39→21:45)
[2016-11-08] MEDS: FAMOTIDINE 20 MG TABLET GT SCH (08:40)
[2016-11-08] MEDS: Z GUARD REMEDY PASTE 57 GM TUBE TOP SCH ×2 (08:41→21:45)
[2016-11-08] MEDS: DOCUSATE SODIUM 100 MG/10 ML LIQUID UDC GT SCH ×2 (08:49→16:45)
--- NOTE | 2016-11-08 11:43 | NUR ---
PT RECEIVED ON THEODORE VENT , SETTINGS ARE AC 15, Vt 500, 28% FIO2. TOLERATING VENT SETTINGS WELL WITH NO SOB NOTED. PORTEX 8 TRACH IS PATENT AND SECURED WITH TIES, CUFF INFLATED. SUCTIONED LARGE AMOUNTS OF THICK YELLOW THICK SECRETIONS. HHN TXS GIVEN WITH NO ADVERSE REACTIONS. ALARMS ARE ON AND AUDIBLE, BVM AND BACK UP TRACH AT BEDSIDE. WILL CONTINUE TO MONITOR.
[2016-11-08 11:46] VITALS: BP 143/102
--- NOTE | 2016-11-08 12:00 | NUR ---
awake and able to nod, maintains eye contact, tube fdg infusing well, no residual noted, kept head of bed elevated at all times
[2016-11-08 15:52] VITALS: BP 154/94
--- NOTE | 2016-11-08 16:00 | NUR ---
stools pasty around tube, none noted in the flexiseal bag- removed flexiseal and cleansed pt, wound care done, repositioned with heels off loaded with pillows, tolerating tuube fdg well, no residual noted, contact isolation observed
[2016-11-08] MEDS ORDERED: NEUTRA PHOS PACKET GT ONE (16:30)
[2016-11-08] MEDS: ACETAMINOPHEN 650 MG/20.3 ML LIQUID UDC GT PRN (17:42)
--- NOTE | 2016-11-08 18:00 | NUR ---
medicated with Tylenol via GT for c/o pain. repositioned q 2h with heels off loaded at all times, GT feeding tolerated well, all needs attended and met, had 2 pasty BMs this shift, kept clean and dry, no distress noted, sat at 99% with same vent settings, suctioned of small amount of thin whitish secretions via tracheostomy, oral care given
--- NOTE | 2016-11-08 19:20 | NUR ---
Bedside reporting with MEHREEN Marks. Patient sleeping during initial rounds, with HOB elevated, trach connected to a mechanical vent with prescribed setting, tolerated well. No s/s of respiratory distress noted. Dr. Alvarado at bedside. GT intact and patent with continuos Nutren 1.5 feeding via Enteral pump. No gastric residual obtained. GT site clean and dry, no s/s of infection. F/C intact and patent draining per gravity at bedside with cloudy yellow urine output. Sacral dressing intact. Contact isolation maintained. Continue current plan of care.
[2016-11-08 20:03] VITALS: BP 122/83
--- NOTE | 2016-11-08 20:35 | NUR ---
PT ON CONT THEODORE VENT WITH PORTEX # [address] AND SECURED, WITH SAME CURRENT VENT SETTINGS, A/C 15, VT 500ML, 28%, PT DOES ASSIST MOST OF THE TIME, IS COHERENT, SLEEPY AT TIMES, WITH GOOD COUGH EFFORT, WHITISH TINGE SECRETIONS, WITH NO VENT CHANGES MADE AT THIS TIME, WITH CONT PULSE OXY AT BEDSIDE, SAT 97-98%, WITH GOOD VENTILATION, NEB INLINE WITH ALBUTEROL/ ATROVENT TOLL WELL, ALL ALARMS OK, AMBU BAG AT BEDSIDE, PT STABLE. Jamin CARLSON RCP Addendum: 11/08/16 at 2039 by SUDARSHAN CARLSON RT Amended: Links added.
[2016-11-09] MEDS: MEROPENEM 1 G in IV NORMAL SALINE 100 ML IV SCH ×2 (00:22→07:48)
[2016-11-09] MEDS: NYSTATIN SUSPENSION 5 ML LIQUID UDC PO SCH ×4 (00:22→17:29)
[2016-11-09 00:46] VITALS: BP 134/92
[2016-11-09] MEDS: ALBUTEROL SULFATE 2.5 MG/ 0.5 ML NEBU IH SCH ×4 (03:50→15:35)
[2016-11-09] MEDS: IPRATROPIUM BROMIDE 0.5 MG/2.5 ML NEBU NEB SCH ×4 (03:50→15:35)
[2016-11-09 04:00] VITALS: BP 159/109
[2016-11-09] MEDS: ACETAMINOPHEN 650 MG/20.3 ML LIQUID UDC GT PRN (04:25)
--- NOTE | 2016-11-09 04:31 | NUR ---
BP 159/103 Clonidine 0.1 mg and with Temp 100.9 Tylenol was given. Cooling measures initiated. Will continue to monitor.
--- NOTE | 2016-11-09 07:04 | NUR ---
Complete bed bath, wound care, trach, GT care was given, tolerated well. Continue on ATB IVPB as ordered without s/s of adverse reaction noted. All needs attended and met. Contact isolation maintained. No significant event reported all night. Continue plan of care.
[2016-11-09 07:38] LABS: CREATININE 0.8 mg/dL (0.6-1.3); PHOSPHOROUS 2.6 mg/dL (2.5-4.9); POTASSIUM 4.3 mmol/L (3.5-5.1)
--- NOTE | 2016-11-09 07:50 | NUR ---
PATIENT RECEIVED IN ROOM RESTING ALERT AWAKE IN NO ACUTE DISTRESS. SR ON SIGN ERECTOR AND REPAIRER. TOLERATING VENT SETTINGS WITH O2 SAT 97%. G.TUBE SITE CLEAN AND DRY WITH C/D/I DRESSING. IVF RUNNING. ROLAND CATH WITH YELLOW AND CLEAR URINE IN ROLAND CATH BAG. DVT PUMPS AND FIRST STEP MATTRESS IN PLACE.
[2016-11-09] MEDS: HYDROMORPHONE HCL 2 MG TABLET GT PRN ×2 (07:52→17:29)
[2016-11-09] MEDS: LACTULOSE 20 G/30 ML LIQUID UDC GT SCH (07:53)
[2016-11-09] MEDS: FERROUS SULFATE 300 MG/5 ML LIQUID UDC GT SCH ×3 (07:53→17:30)
[2016-11-09] MEDS: MULTIVITS W-FE,OTHER MIN 15 ML UDC GT SCH (07:53)
[2016-11-09] MEDS: ASCORBIC ACID 500 MG TABLET GT SCH (07:53)
[2016-11-09] MEDS: Z GUARD REMEDY PASTE 57 GM TUBE TOP SCH (07:54)
[2016-11-09] MEDS: FAMOTIDINE 20 MG TABLET GT SCH (07:55)
[2016-11-09] MEDS: METOCLOPRAMIDE HCL 10 MG TABLET GT SCH ×3 (07:55→17:29)
[2016-11-09] MEDS: GABAPENTIN 300 MG CAPSULE GT SCH ×3 (07:55→17:29)
[2016-11-09] MEDS: DOCUSATE SODIUM 100 MG/10 ML LIQUID UDC GT SCH ×2 (07:55→17:00)
[2016-11-09] MEDS: NUTREN 1.5 1000ML BAG GT PRN (08:16)
[2016-11-09] MEDS ORDERED: CLON1PAT TD (11:11)
[2016-11-09] MEDS ORDERED: FERR325T28 GT (11:11)
[2016-11-09] MEDS ORDERED: LEVO500T2 GT (11:11)
[2016-11-09] MEDS ORDERED: CLONIDINE-TTS 1 PATCH TD SCH (11:15)
[2016-11-09 11:19] VITALS: BP 108/77
[2016-11-09] MEDS ORDERED: TAMS-3 GT (11:28)
--- NOTE | 2016-11-09 11:40 | NUR ---
DRESSING CHANGED TO SACRAL AND RIGHT HEEL WOUNDS. IV REMOVED, PRESSURE APPLIED AND HEMOSTASIS ACHIEVED.
[2016-11-09 15:34] VITALS: BP 134/83
[2016-11-09] MEDS ORDERED: LEVOFLOXACIN 500 MG TABLET GT ONE (17:15)
--- NOTE | 2016-11-09 18:01 | NUR ---
DISCHARGING PATIENT TO [facility] TO [facility] IN A STABLE CONDITION. DISCHARGE INSTRUCTIONS PROVIDED. LIST OF BELONGINGS SIGNED. PATIENT SCHEDULED REFINERY PIPELINE OPERATOR AT 1930.
--- NOTE | 2016-11-09 18:21 | NUR ---
PATIENT IN NO ACUTE DISTRESS THROUGHOUT SHIFT. PAIN MANAGED WITH MEDICATION PRESCRIBED. VSS. TURNED AND REPOSITIONED EVERY 2 HOURS AND PRN.
== END 2016-11-09 19:15 | DRG 720 ==
LOC: DOU 13:25 → TELE-TD 13:26 → CCU 11-06 17:39 → TELE-TD 11-07 09:49
PROVIDERS: ADMIT Internal Medicine; ATTEND Internal Medicine
PROC: 5A1955Z Respiratory Ventilation, Greater than 96 Consecutive Hours (ICD-10-PCS; principal; 2016-11-02)
DX: A41.9 Sepsis, unspecified organism (principal); J69.0 Pneumonitis due to inhalation of food and vomit; G82.50 Quadriplegia, unspecified; G93.40 Encephalopathy, unspecified; L89.154 Pressure ulcer of sacral region, stage 4; E43 Unspecified severe protein-calorie malnutrition; Z99.11 Dependence on respirator [ventilator] status; K94.23 Gastrostomy malfunction; J96.10 Chronic respiratory failure, unspecified whether with hypoxia or hypercapnia; Z86.19 Personal history of other infectious and parasitic diseases; Z74.01 Bed confinement status; V89.2XXS Person injured in unspecified motor-vehicle accident, traffic, sequela; S14.109S Unspecified injury at unspecified level of cervical spinal cord, sequela; R13.10 Dysphagia, unspecified; N39.0 Urinary tract infection, site not specified; N32.89 Other specified disorders of bladder; N31.9 Neuromuscular dysfunction of bladder, unspecified; L89.629 Pressure ulcer of left heel, unspecified stage; L89.619 Pressure ulcer of right heel, unspecified stage; F41.9 Anxiety disorder, unspecified; J98.11 Atelectasis; F32.9 Major depressive disorder, single episode, unspecified; E87.6 Hypokalemia; D63.8 Anemia in other chronic diseases classified elsewhere; B96.20 Unspecified Escherichia coli [E. coli] as the cause of diseases classified elsewhere; B37.9 Candidiasis, unspecified; D68.59 Other primary thrombophilia; R33.9 Retention of urine, unspecified; Z74.09 Other reduced mobility; E11.65 Type 2 diabetes mellitus with hyperglycemia; Z16.24 Resistance to multiple antibiotics; N35.9 Urethral stricture, unspecified
CPT/HCPCS: 36415; 36600; 71010; 83550; 83735; 84100; 84443; 85025; 87040; 87077; 87086; 94002; 94003; 94640; 94664; 94762; J0696; J2185; J3490; J3590; J7060; J8597